=== PATIENT | male | born 1960 | race Caucasian/White ===

== ENCOUNTER 2017-08-01 11:36 | Day surgery (SDC) | payer OTHER ==
[2017-07-31 12:59] VITALS: BMI 29.1
[2017-08-01] MEDS ORDERED: Oxymetazoline HCl 0.05% ( 15 ML ) ONE ×2 (12:57→14:20)
[2017-08-01] MEDS ORDERED: Bupivacaine PF 0.5% 30 ML VIAL ONE (14:20)
[2017-08-01] MEDS ORDERED: Lidocaine 2% w/Epinephrine 1:200K 20 ML VIAL ONE (14:20)
[2017-08-01] MEDS ORDERED: Fentanyl 250 MCG/5 ML VIAL ONE (14:50)
[2017-08-01] MEDS ORDERED: Dexamethasone 20 MG/5 ML VIAL ONE (14:58)
[2017-08-01] MEDS ORDERED: Propofol 200 MG/20 ML VIAL ONE ×2 (14:58)
[2017-08-01] MEDS ORDERED: Ondansetron HCl/PF 4 MG/2 ML Vial ONE (14:58)
[2017-08-01] MEDS ORDERED: Glycopyrrolate 0.2 MG/ML 5 ML SYRINGE ONE (14:58)
[2017-08-01] MEDS ORDERED: Lidocaine 2% PF 10 ML AMP (For Epidural Use) ONE (14:58)
[2017-08-01] MEDS ORDERED: Bupivacaine 0.25% HCL 30 ML VIAL ONE (15:01)
[2017-08-01] MEDS ORDERED: Albuterol Sulfate HFA (OR ONLY) ONE (15:32)
[2017-08-01] MEDS ORDERED: methylPREDNISolone Acetate 40 mg/ml Vial ONE (15:46)
[2017-08-01] MEDS ORDERED: Meperidine HCl/PF 25 MG/ML VIAL ONE (16:20)
[2017-08-01] MEDS ORDERED: Fentanyl 100 MCG/2 ML VIAL ONE (16:20)
[2017-08-01] MEDS ORDERED: Hydrocodone-Acetamin 15 ML UDCUP ONE (17:21)
--- NOTE | 2017-08-01 19:56 | OP ---
PREOPERATIVE DIAGNOSES: Chronic sinusitis, recurrent sinusitis and deviated septum with hypertrophi c inferior turbinates. POSTOPERATIVE DIAGNOSES: Chronic sinusitis, recurrent sinusitis and deviated septum with hypertroph ic inferior turbinates. PROCEDURES PERFORMED: 1. Bilateral nasal endoscopy with maxillary antrostomy. 2. Bilateral nasal endoscopy with total ethmoidectomy. 3. Bilateral nasal endoscopy with frontal sinusotomy. 4. Bilateral nasal endoscopy with sphenoidotomy. 5. Septoplasty and bilateral nasal endoscopy with submucosal resection of inferior turbinates. PROCEDURE IN DETAIL: After consent was obtained, the patient was identified, brought to the operati ng room, and placed on the operating room table in the supine position. Consent was obtained, notif lianet the patient of the possibility of additional infections, bleeding, brain injury, and eye/orbita l injury. The patient was placed on the operating room table, and general endotracheal anesthesia and intravenous access was obtained. The patient was then positioned, prepped and draped for endosc opic sinus surgery. Nasal preparation included trimming nasal vestibular hairs and spraying in topi daria Afrin. We then placed Afrin topical solution on nasal pledgets and strategically located them i ntranasally. The perinasal mucosa was injected with 1% lidocaine with 1:100,000 epinephrine in the submucoperichondrial plane of the septum, lateral nasal wall, and anterior to the uncinate. The pat ient was then prepped and draped in a sterile fashion and positioned for endoscopic sinus surgery. Maxillary antrostomy: The uncinate was then identified and the extent of the uncinate was appreciated by out-fracturing the uncinate with the ball-tip probe. We then used the sickle blade t o disarticulate the uncinate from the lateral nasal wall. This was then removed with straight bitin g and upbiting punches with the remaining shrouds of mucosa and bony septum removed with the micro-d ebrider. The natural os of the maxillary sinus was then identified and enlarged with the maxillary punches and back biting forceps. Total ethmoidectomy: The anterior face of the ethmoid bulla was entered and with the micro-debrider , dissection continued posteriorly to the ground lamella. The limits of dissection included the ins ertion of the middle turbinate, medial orbital wall, and base of skull. We similarly identified the frontal recess and removed shrouds of bone and debris in that region to obtain patency into the agg er nasi region and frontal recess. We then entered the ground lamella and its anteroinferior aspect and proceeded posteriorly, opening the posterior ethmoid air-cell system. Again, the limits of dis section included the base of skull and medial orbital wall. Frontal sinusotomy: The anterior face of the ethmoid bulla was entered and with the micro-debrider, dissection continued posteriorly to the ground lamella. The limits of dissection included the inse rtion of the middle turbinate, medial orbital wall, and base of skull. We similarly identified the f rontal recess and removed shrouds of bone and debris in that region to obtain patency into the Agger Nasi region and frontal recess. We then entered the ground lamella and its anteroinferior aspect an d proceeded posteriorly, opening the posterior ethmoid air-cell system. Again, the limits of dissect ion included the base of skull and medial orbital wall. Sphenoidotomy: The anterior face of the sphenoid was identified and entered in its extreme anteroin ferior aspect. A sphenoid punch was then used to enlarge the sphenoidotomy and no injury to the optic nerve or internal carotid artery occurred. Septoplasty: After local anesthesia was infiltrated into the submucoperichondrial plane, a standard [place] incision was made with a #15 blade down to the level of the septal cartilage. The caudal e levator was used to elevate the mucoperichondrium from the underlying cartilage. We then proceeded beyond the bony cartilaginous junction and elevated the bony periosteum as well. Great attention wa s paid to the spur to prevent rent formation in the septal flap. A transcartilaginous incision was then made, while preserving an adequate dorsal and caudal cartilaginous strut for tip support. The deformed cartilage was removed and disarticulated from the bony cartilaginous junction and maxillary crest. This was placed in saline and would later be crushed and returned to the mucoperichondrial envelope. We then elevated the contralateral periosteum from the bony cartilaginous region and sukhi josee the deformed portions of the bone and bony spurs. The cartilage was then crushed and placed alycia k into the mucoperichondrial envelope and the mucosa was re-approximated with a quilting stitch comp osed of rapidly absorbent gut suture. The Jose Armando incision was also closed with interrupted gut sut ure. At the completion of the case, Montes splints were placed and suture secured to the caudal sept um. Submucosal resection of inferior turbinates: The inferior turbinates were visualized with a 0-degre e endoscope and outfractured with a Anisha elevator. The inferior medial aspect was cauterized with t he electrocautery. Hemostasis was obtained. After adequate airway was established, we turned our att ention to the contralateral side and used a similar procedure. Again, a Anisha elevator was used to o utfracture inferior turbinates under endoscopic visualization. With a suction cautery, the free infe rior medial aspect was cauterized under direct visualization along the length of the inferior turbin ate. The inferior turbinates were visualized under endoscopic visualization and outfractured with th e elevator. The inferolateral edge of the inferior turbinate was then cauterized along its length wi th the suction cautery without difficulty. At this point, we then turned our attention to the contralateral side and proceeded with endoscopic sinus surgery. At the completion of the case, Rice keel splints were placed in the ethmoid cavities after the ethmo idectomy. There were no complications. The patient tolerated the procedure well and was discharged to the recovery room in stable condition prior to return to the preoperative Day Stay with ultimate discharge home. Prescriptions for pain medication and antibiotics were provided. The patient rece ived intramuscular Depo-Medrol during the case.
--- NOTE | 2017-08-05 13:25 | EKG ---
Test Reason : PREOP Blood Pressure : / mmHG Vent. Rate : 065 BPM Atrial Rate : 065 BPM P-R Int : 162 ms QRS Dur : 112 ms QT Int : 408 ms P-R-T Axes : 001 -57 -24 degrees QTc Int : 424 ms Normal sinus rhythm Left anterior fascicular block Abnormal ECG Confirmed by ANNETTE KEVIN ([id number]) on 08/05/2017 1:25:25 PM Referred By: CHANELLE SOLIZ Confirmed By:ANNETTE KEVIN
== END 2017-08-01 18:06 | disposition home or self-care (01) ==
LOC: SDC 11:36
PROVIDERS: ATTEND Specialist
PROC: 09CX8ZZ Extirpation of Matter from Left Sphenoid Sinus, Via Natural or Artificial Opening Endoscopic (ICD-10-PCS; principal; 2017-08-01)
PROC: 09TU8ZZ Resection of Right Ethmoid Sinus, Via Natural or Artificial Opening Endoscopic (ICD-10-PCS; principal; 2017-08-01)
PROC: 09RM07Z Replacement of Nasal Septum with Autologous Tissue Substitute, Open Approach (ICD-10-PCS; principal; 2017-08-01)
PROC: 099Q8ZZ Drainage of Right Maxillary Sinus, Via Natural or Artificial Opening Endoscopic (ICD-10-PCS; principal; 2017-08-01)
PROC: 099R8ZZ Drainage of Left Maxillary Sinus, Via Natural or Artificial Opening Endoscopic (ICD-10-PCS; principal; 2017-08-01)
PROC: 09TV8ZZ Resection of Left Ethmoid Sinus, Via Natural or Artificial Opening Endoscopic (ICD-10-PCS; principal; 2017-08-01)
PROC: 09BS8ZZ Excision of Right Frontal Sinus, Via Natural or Artificial Opening Endoscopic (ICD-10-PCS; principal; 2017-08-01)
PROC: 09TL8ZZ Resection of Nasal Turbinate, Via Natural or Artificial Opening Endoscopic (ICD-10-PCS; principal; 2017-08-01)
PROC: 09BT8ZZ Excision of Left Frontal Sinus, Via Natural or Artificial Opening Endoscopic (ICD-10-PCS; principal; 2017-08-01)
PROC: 09CW8ZZ Extirpation of Matter from Right Sphenoid Sinus, Via Natural or Artificial Opening Endoscopic (ICD-10-PCS; principal; 2017-08-01)
DX: J32.9 Chronic sinusitis, unspecified (principal); J34.2 Deviated nasal septum; J34.3 Hypertrophy of nasal turbinates; F17.200 Nicotine dependence, unspecified, uncomplicated; I10 Essential (primary) hypertension; E78.5 Hyperlipidemia, unspecified; J44.9 Chronic obstructive pulmonary disease, unspecified; G43.909 Migraine, unspecified, not intractable, without status migrainosus; M19.90 Unspecified osteoarthritis, unspecified site; Z79.899 Other long term (current) drug therapy; Z79.52 Long term (current) use of systemic steroids; Z88.0 Allergy status to penicillin; Z90.89 Acquired absence of other organs; Z87.448 Personal history of other diseases of urinary system
CPT/HCPCS: 93005; 93010; J1030; J1100; J2001; J2175; J2405; J2704; J3010; S0020